=== PATIENT | male | born 1990 | race American Indian/Alaskan Native ===

== ENCOUNTER 2021-05-25 13:22 | Emergency (ER) | payer OTHER ==
[2021-05-25 13:29] VITALS: BP 132/73
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
== END 2021-05-25 14:05 | disposition home or self-care (01) ==
LOC: ED 13:22
DX: M54.6 Pain in thoracic spine (principal); V87.7XXA Person injured in collision between other specified motor vehicles (traffic), initial encounter; Y93.89 Activity, other specified; Y92.488 Other paved roadways as the place of occurrence of the external cause; Y99.8 Other external cause status
CPT/HCPCS: 99282